=== PATIENT | female | born 1970 | race Caucasian/White ===

== ENCOUNTER 2021-04-13 06:36 | Day surgery (SDC) | payer OTHER, SELFPAY ==
[2021-04-08 11:09] VITALS: BMI 63.6
--- NOTE | 2021-04-12 12:02 | HO.ANESPROP2 ---
Documented by User: Marisa Lincoln 04/12/21 12:03 HPI - Anesthesia Eval Consult details Narrative: 51yo F for Colonoscopy [facility] Past Medical History Medical History COVID-19 vaccine series completed Diarrhea Knee pain, right Low back pain Surgical History Surgical History No history of previous surgery Social History Social History Patient Tobacco Use Status: Never used Tobacco Use of substances other than those prescribed or required for medical reasons: No Are you DNR?: Yes Advance Directives: No Advance Directives Information Provided: No Advance Directives on File: No Meds Allergies Allergy/AdvReac Type Severity Reaction Status Date / Time powder in gloves Allergy Unknown rash Verified 04/08/21 11:05 Home Medications Medication Instructions Recorded Confirmed Last Taken Type cetirizine [Zyrtec] 10 mg PO DAILY 04/08/21 04/08/21 Unknown History multivitamin 1 tab PO DAILY 04/08/21 04/08/21 Unknown History Exam Exam Date and Time: April 12, 2021 1202 Height,Weight and Vital Signs: Height 5 ft 1 in Weight 152.861 kg Assessment and Plan Assessment Anesthesia Assessment: Chart Reviewed Documented by User: Betty Cheema 04/13/21 08:33 [facility] Past Medical History Medical History COVID-19 vaccine series completed Diarrhea Knee pain, right Low back pain Surgical History Surgical History No history of previous surgery Social History Social History Patient Tobacco Use Status: Never used Tobacco Use of substances other than those prescribed or required for medical reasons: No Are you DNR?: Yes Advance Directives: No Advance Directives Information Provided: No Advance Directives on File: No Meds Allergies Allergy/AdvReac Type Severity Reaction Status Date / Time powder in gloves Allergy Unknown rash Verified 04/08/21 11:05 Home Medications Medication Instructions Recorded Confirmed Last Taken Type cetirizine [Zyrtec] 10 mg PO DAILY 04/08/21 04/08/21 Unknown History multivitamin 1 tab PO DAILY 04/08/21 04/08/21 Unknown History Exam Airway Mallampati Class: III (Full neck) TM Dist: >3cm Neck ROM: Limited Loose/Missing/Broken Teeth: No Heart: RRR Lungs: CTA Assessment and Plan Assessment Anesthesia Assessment: Anesthesia Plan Discussed and Chart Reviewed Final Anesthetic Review NPO: Yes ASA Class: III Final Preanesthetic Review: Meds/Allgs Chart Reviewed, Consent Obtained/Reviewed and Anes Risks/Benef Reviewed Patient Risk: Intermediate Procedure Risk: Low Anesthetic Plan Anesthetic Plan: MAC: Disposition: Standard PACU
[2021-04-13 07:28] VITALS: BP 171/94; PULSE 92; RESP 18; TEMP 35.9; O2SAT 96; BMI 63.6
[2021-04-13] MEDS: Lactated Ringers 1,000 ML 100 ML IVCONT (07:35)
--- NOTE | 2021-04-13 07:40 | P.HPSUR_ITS ---
Pre-Procedural Eval Section A Date of Service: 04/13/21 The patient is an INPATIENT: No The History & Physical has been completed within 30 days and I have reviewed it.: No Section B Chief Complaint: screening Details of Present Illness: colon cancer screening, intermittent urgency, FH of colon polyps Relevant Family History (Specify if Yes): Yes Relevant Social History: None Present Medications: see Short Stay Collaborative assessment Medical History: Significant History (Degenerative joint disease and osteoarthritis. Morbid obesity. ) Allergies: Allergies Allergy/AdvReac Type Severity Reaction Status Date / Time powder in gloves Allergy Unknown rash Verified 04/08/21 11:05 Review of Systems Sugical H&P ROS: Negative: Constitution, Cardiovascular, Respiratory and Gastr ointestinal Exam Surgical H&P Exam: Normal: Heart, Normal: Lungs, Normal: Extremities and Normal: Abdomen Plan Diagnosis/Plan: Unchanged I have reviewed the history and physical and performed a pertinent physical examination on my patient. No changes have occurred unless specified.
--- NOTE | 2021-04-13 08:18 | PM.OP ---
Brief Operative Note Date of Service: 04/13/21 Pre-op diagnosis: Colon cancer screening, intermittent urgency with BMs Post-op diagnosis: other (DIVERTICULOSIS) Procedure: COLONOSCOPY TILL CECUM WITH BIOPSIES Consent: Indications for the procedure and potential complications of bleeding, perforation, reaction to medications and missed diagnosis were discussed with the patient and informed consent was obtained. Instrument: Olympus PCF H 190 L variable stiffness pediatric colonoscope Monitoring: Vital signs and clinical assessment, intermittent blood pressure monitoring, continuous EKG monitoring, Pulse oximetry and Carbon Dioxide monitoring were done throughout the procedure. Colon withdrawl time was 20 minutes. Procedure: The patient was placed in the left lateral decubitis position and pre-procedure medications were administered. After a digital rectal examination of the ano-rectum, the video colonoscope was inserted into the rectum and advanced through the colon to the cecum. The colonoscope was slowly withdrawn in a retrograde panoramic fashion and the colon mucosa was carefully examined including a retroflexed view of the rectum. Findings and interventions are described below. Procedure Difficulty: Without difficulty Findings: Terminal Ileum: Not evaluated Cecum: Normal Ascending Colon: Normal Transverse Colon: Normal Descending Colon: Moderate diverticulosis Sigmoid Colon: Moderate diverticulosis Rectum: Normal Ano-rectum: Normal Colon preparation: Excellent Impression and Post Procedure Diagnosis: Colonoscopy Findings: No polyps were detected. Random biopsies were obtained from the colon to check for microscopic colitis. Moderate diverticulosis seen in the left colon Plan: Await pathology results Patient has an appointment on 05/03/21 in the [facility] with JOSE Jade. Repeat Colonoscopy in 5 years due to family hx of multiple colon polyps in her Dad. Above findings were reviewed with the patient and diverticulosis handout was given in the discharge area Surgeon: Rebecca Ware MD Anesthesia: MAC (Dr Cheema) Was an Product Info Specialist used for this Procedure?: No Product Info Specialist: Mary Chino Estimated blood loss (mL): 0 Pathology: other (A- RANDOM COLON BIOPSIES) Condition: stable Disposition: PACU
[2021-04-13 08:57] VITALS: BP 133/85; PULSE 86; RESP 18; TEMP 36.8; O2SAT 95
--- NOTE | 2021-04-13 09:08 | PC.NURSE ---
patient alert and awake sitting up in bed drinking ice water. awaiting eduardo murillo
[2021-04-13 09:12] VITALS: BP 148/80; PULSE 82; RESP 18; TEMP 36.1; O2SAT 97
--- NOTE | 2021-04-13 17:28 | P.OP_ITS ---
Operative Note Operative Note Date of Service: 04/13/21 Narrative: Pre-op diagnosis: Colon cancer screening, intermittent urgency with BMs Post-op diagnosis: other (DIVERTICULOSIS) Procedure: COLONOSCOPY TILL CECUM WITH RANDOM BIOPSIES Consent: Indications for the procedure and potential complications of bleeding, perforation, reaction to medications and missed diagnosis were discussed with the patient and informed consent was obtained. Instrument: Olympus PCF H 190 L variable stiffness pediatric colonoscope Monitoring: Vital signs and clinical assessment, intermittent blood pressure monitoring, continuous EKG monitoring, Pulse oximetry and Carbon Dioxide monitoring were done throughout the procedure. Colon withdrawl time was 20 minutes. Procedure: The patient was placed in the left lateral decubitis position and pre-procedure medications were administered. After a digital rectal examination of the ano-rectum, the video colonoscope was inserted into the rectum and advanced through the colon to the cecum. The colonoscope was slowly withdrawn in a retrograde panoramic fashion and the colon mucosa was carefully examined including a retroflexed view of the rectum. Findings and interventions are described below. Procedure Difficulty: Without difficulty Findings: Terminal Ileum: Not evaluated Cecum: Normal Ascending Colon: Normal Transverse Colon: Normal Descending Colon: Moderate diverticulosis Sigmoid Colon: Moderate diverticulosis Rectum: Normal Ano-rectum: Normal Colon preparation: Excellent Impression and Post Procedure Diagnosis: Colonoscopy Findings: No polyps were detected. Random biopsies were obtained from the colon to check for microscopic colitis. Moderate diverticulosis seen in the left colon Plan: Await pathology results Patient has an appointment on 05/03/21 in the GI Clinic with JOSE Jade. Repeat Colonoscopy in 5 years due to family hx of multiple colon polyps in her Dad. Above findings were reviewed with the patient and diverticulosis handout was given in the discharge area Surgeon: Rebecca Ware MD Anesthesia: MAC (Dr Cheema) Was an Inspector Floor Sub Assembly used for this Procedure?: No Inspector Floor Sub Assembly: Mary Chino Estimated blood loss (mL): 0 Pathology: other (A- RANDOM COLON BIOPSIES) Condition: stable Disposition: PACU
== END 2021-04-13 11:00 | disposition home or self-care (01) ==
PROVIDERS: PCP Internal Medicine; Visit Provider Internal Medicine Gastroenterology
PROC: 0DJD8ZZ Inspection of Lower Intestinal Tract, Via Natural or Artificial Opening Endoscopic (ICD-10-PCS; CPT 45378; principal; 2021-04-13 08:10)
DX: Z12.11 Encounter for screening for malignant neoplasm of colon (principal); Z83.71 Family history of colonic polyps; K57.30 Diverticulosis of large intestine without perforation or abscess without bleeding; R15.2 Fecal urgency; Z79.899 Other long term (current) drug therapy
CPT/HCPCS: 45380; 88305; J2405; J2765

== ENCOUNTER → 2021-05-10 10:44 | Outpatient (BNVA) | payer OTHER, SELFPAY | PROVIDERS: PCP Internal Medicine; Visit Provider Physician Assistant ==

== ENCOUNTER 2021-06-01 12:25 | Outpatient (REF) | payer OTHER, SELFPAY ==
[2021-06-01 13:58] LABS: MANUAL DIFF FLAG NO
[2021-06-01 14:01] LABS: Basophils Percent Auto 0.6 % (0-2); Eosinophils Absolute Auto 0.1 X10*3/uL (0.0-0.4); Eosinophils Percent Auto 1.5 % (0-4); Hematocrit 45.1 % (37-47); Hemoglobin 14.7 g/dl (12.0-16.0); Imm Gran Abs Auto 0.05 X10*3/uL (0.00-0.03); Imm Gran Pct Auto 0.7 % (0.0-0.4); Lymphocytes Absolute Auto 2.6 X10*3/uL (1.2-4.9); Lymphocytes Percent Auto 36.1 % (20-40); Mean Corpuscular HGB Conc 32.6 g/dl (31.0-35.0); Mean Corpuscular Hemoglobin 28.7 pg (27.0-33.0); Mean Corpuscular Volume 87.9 fL (80-98); Mean Platelet Volume 10.7 fL (9.4-12.3); Monocytes Absolute Auto 0.4 X10*3/uL (0.1-1.2); Monocytes Percent Auto 6.2 % (2-11); Neutrophils Absolute Auto 3.9 X10*3/uL (2.0-8.3); Neutrophils Percent Auto 54.9 % (45-73); Platelet Count 243 X10*3/uL (160-400); Red Blood Count 5.13 X10*6/uL (4.20-5.50); Red Cell Distribution Width 13.6 % (11.0-16.0); White Blood Count 7.1 X10*3/uL (4.8-10.8)
[2021-06-01 14:29] LABS: Alanine Aminotransferase 41 U/L (0-31); Alkaline Phosphatase 113 U/L (39-117); Anion Gap 13 (12-20); Aspartate Amino Transferase 22 U/L (5-31); Bilirubin Total 0.8 mg/dL (0.0-1.0); Blood Urea Nitrogen 9 mg/dL (9-16); C Reactive Protein 0.57 mg/dL (< or = 0.50); Calcium 8.9 mg/dL (8.4-10.2); Carbon Dioxide 26 mmol/L (22-29); Chloride 105 mmol/L (96-108); Estimated Glomerular Filt Rate > 60; Glucose Random 100 mg/dL (60-115); Potassium 4.5 mmol/L (3.3-5.1); Sodium 139 mmol/L (135-145); Total Protein 6.5 g/dL (6.5-8.0)
[2021-06-01 14:38] LABS: Thyroid Stimulating Hormone 2.06 uIU/mL (0.32-4.0)
[2021-06-01 14:52] LABS: Erythrocyte Sedimentation Rate 9 MM/HR (0-20)
[2021-06-04 02:56] LABS: Transglutaminase IgA 1 U/mL
[2021-06-04 10:42] LABS: Endomysial IgA Antibody Negative (Negative)
[2021-06-05 18:16] LABS: Calprotectin, Fecal 6 mcg/g
== END 2021-06-01 12:26 | disposition home or self-care (01) ==
LOC: HO.HMGCLDS 12:25
PROVIDERS: PCP Internal Medicine; Visit Provider Physician Assistant
DX: R10.11 Right upper quadrant pain (principal); R19.5 Other fecal abnormalities; R19.7 Diarrhea, unspecified
CPT/HCPCS: 36415; 80053; 83516; 83993; 84443; 85025; 85652; 86140; 86255; 86256

== ENCOUNTER → 2021-06-23 08:30 | Outpatient (BNVA) | payer OTHER, SELFPAY | PROVIDERS: PCP Internal Medicine; Visit Provider Physician Assistant ==

== ENCOUNTER 2022-09-02 07:27 | Outpatient (REF) | payer OTHER, SELFPAY ==
[2022-09-02 13:06] LABS: Alanine Aminotransferase 27 U/L (0-31); Anion Gap 9 (12-20); Aspartate Amino Transferase 16 U/L (5-31); Blood Urea Nitrogen 19 mg/dL (9-16); Calcium 9.1 mg/dL (8.4-10.2); Carbon Dioxide 27 mmol/L (22-29); Chloride 103 mmol/L (96-108); Cholesterol 144 mg/dL; Estimated Glomerular Filt Rate > 60; Glucose Fasting 114 mg/dL (60-99); HDL Cholesterol 45 mg/dL; LDL Cholesterol Calculated 84 mg/dl; Sodium 135 mmol/L (135-145); Triglycerides 75 mg/dL
[2022-09-02 13:40] LABS: Vitamin D 25-OH Total 8.1 ng/mL (>30)
== END 2022-09-02 07:28 | disposition home or self-care (01) ==
LOC: HO.HMGCLDS 07:27
PROVIDERS: PCP Internal Medicine; Visit Provider Internal Medicine
DX: Z00.01 Encounter for general adult medical examination with abnormal findings (principal); E66.01 Morbid (severe) obesity due to excess calories; Z68.44 Body mass index [BMI] 60.0-69.9, adult
CPT/HCPCS: 36415; 80048; 80061; 82306; 84450; 84460

== ENCOUNTER 2023-06-01 12:33 | Outpatient (AMB) | payer OTHER, SELFPAY ==
--- NOTE | 2023-06-01 12:35 | AM.OFFWIN_ITS ---
Intake Vital Signs 06/01/23 12:36 Height 5 ft 2 in Weight 338 lb BMI 61.8 BP 154/90 H Blood Pressure Location Lt brachial Position Sitting Pulse 95 Pulse Source Pulse Oximeter Temp 97.3 F Temp Source Temporal Artery Scan Pulse Oximetry (%) 100 Oxygen Delivery Method Room Air Intake Visit Reasons: EST/twisted right ankle Intake Note: Pt is here c/o right ankle and hand pain. Pt states she fell on Monday and now has brusing on her hand. Pt states she has ice'd and elevated her foot and noth ing has worked. Patient Tobacco Use Status: Never used Tobacco Allergies powder in gloves Allergy (Unknown, Verified 06/01/23 12:38) rash Do you need a note to return to daycare/school/sports/work: Yes HPI HPI Comments History of Present Illness Details 53-year-old female presents for twisted ankle. She will her ankle 2 days ago Been experiencing pain and swelling able to ambulate. [facility] Medical History (Updated 08/19/22 @ 12:44 by Michelle Salinas MD) COVID-19 vaccine series completed History of COVID-19 Knee pain, right Low back pain Morbid obesity with BMI of 60.0-69.9, adult Surgical History Hx of colonoscopy No history of previous surgery Family History Sister Mental health disorder Mother Mental health disorder Social History Housing: House Alcohol intake: never Patient Tobacco Use Status: Never used Tobacco e-Cigarette/Vaping Use: Never Used Current occupational status: employed Current occupation: Visiting nurse Cognitive needs: No Hearing needs: No Vision needs: Yes Review of Systems Const All systems reviewed & are unremarkable except as noted in HPI and below Musc Reports arthralgias and Reports joint swelling Physical Exam Vital Signs: Last Vital Signs Temp 97.3 F 06/01/23 12:36 Pulse 95 06/01/23 12:36 BP 154/90 H 06/01/23 12:36 Pulse Ox 100 06/01/23 12:36 Oxygen Delivery Method Room Air 06/01/23 12:36 BMI result Body Mass Index 61.8 Const General: healthy appearing and no acute distress Extrem Other: swelling over the lateral malleolus with mild tenderness to palpation Assessment & Plan Assessment & Plan (1) Ankle pain: Code(s): M25.579 - Pain in unspecified ankle and joints of unspecified foot Plan X-rays performed which show question slight lucency at the base of the distal fibula concerning for avulsion fracture. Air cast provided weightbearing as tolerated Discharge instructions, follow up and treatment are discussed with patient in my usual fashion. Alternatives in treatment are also discussed. The patient will return for worsening symptoms or as needed. Advised that any labs/imaging ordered will be followed up on and contact made if further treatment needed. Counseled that patient's condition may require further evaluation and/or treatment. Symptoms of concern for worsening disorder discussed in detail in my customary manner. Patient does verbalize understanding of the plan, there are no apparent barriers to communication. The patient is given the opportunity to ask questions and have them answered to his/her satisfaction. Orders: Orders XR ankle RT min 3V Today M25.579 - Pain in unspecified ankle and joints of unspecified foot Coding Level of Care Code Est Pt Level 3 (18514) Diagnoses Ankle pain M25.579
[2023-06-01 12:36] VITALS: BP 154/90; PULSE 95; TEMP 36.3; O2SAT 100; BMI 61.8
== END 2023-06-01 13:45 | disposition home or self-care (01) ==
PROVIDERS: PCP Internal Medicine; Visit Provider Physician Assistant
DX: M25.579 Pain in unspecified ankle and joints of unspecified foot (principal)
CPT/HCPCS: 99213

== ENCOUNTER 2023-06-01 13:02 | Outpatient (REF) | payer OTHER, SELFPAY ==
--- NOTE | ~2023-06-01 | XR_ITS ---
EXAMINATION: XR ANKLE, RIGHT CLINICAL INFORMATION: Right ankle pain. COMPARISON: None available. TECHNIQUE: AP, lateral, and mortise views of the right ankle. FINDINGS: The ankle joint and mortise are intact. Mild tibiotalar degenerative joint changes are seen with mild calcifications posteriorly. The tarsal bones are normally aligned. There is a small plantar calcaneal spur. Moderate soft tissue swelling is seen, more pronounced laterally. XR/XR ankle RT min 3V IMPRESSION: Moderate soft tissue swelling, more pronounced laterally without definitive acute underlying osseous abnormality. Soft tissue injury cannot be excluded. If findings persist or worsen, MRI should be considered.
== END 2023-06-01 13:03 | disposition home or self-care (01) ==
LOC: HO.HMGCX 13:02
PROVIDERS: PCP Internal Medicine; Visit Provider Physician Assistant
DX: M25.571 Pain in right ankle and joints of right foot (principal)
CPT/HCPCS: 73610

== ENCOUNTER 2023-08-30 12:20 | Outpatient (AMB) | payer OTHER, SELFPAY ==
--- NOTE | 2023-08-30 12:42 | MHC.PC.OV ---
Vital Signs 08/30/23 12:43 Height 5 ft 2 in Weight 342 lb BMI 62.5 BP 140/82 H Blood Pressure Location Lt brachial Position Sitting Pulse 81 Pulse Source Pulse Oximeter Pulse Oximetry (%) 95 Oxygen Delivery Method Room Air Intake Visit Reasons: PE Intake Note: Pt is here today for PE. [place] [facility] [place] was 2 years ago. Allergies powder in gloves Allergy (Unknown, Verified 08/30/23 13:15) rash Medication List - Last Reconciled 08/30/23 by Michelle Salinas MD cetirizine (Zyrtec) 10 mg PO DAILY loperamide (Imodium A-D) 2 mg PO Q6H PRN multivitamin 1 tab PO DAILY Tobacco use date assessed: 08/30/23 Dental Screening Dental Screen Date: 08/30/23 Did you have a dental visit in the last 12 months?: No Did you have a dental problem in the last 6 months where you did not have access to dental care?: No Was dental information given to patient?: Patient declined HPI PE HPI Details 53-year-old lady here today for her physical exam. She is up-to-date with her cervical cancer screening and pelvic exam, goes [place] [facility] [place] [facility]. She is also up-to-date with her screening colonoscopy done in [address] Ware, to be rechecked again in 2025 due to positive family history for colon cancer. [facility] Medical History (Updated 08/30/23 @ 13:33 by Michelle Salinas MD) Essential hypertension Impaired fasting glucose History of COVID-19 Morbid obesity with BMI of 60.0-69.9, adult COVID-19 vaccine series completed Low back pain Knee pain, right Surgical History Hx of colonoscopy No history of previous surgery Family History Sister Mental health disorder Mother Mental health disorder Social History Housing: House Alcohol intake: never Patient Tobacco Use Status: Never used Tobacco e-Cigarette/Vaping Use: Never Used Current occupational status: employed Current occupation: Visiting nurse Cognitive needs: No Hearing needs: No Vision needs: Yes Questionnaire PHQ-9 Over the last 2 weeks, how often have you been bothered by any of the following problems? 1. Little interest or pleasure in doing things: not at all 2. Feeling down, depressed, or hopeless: not at all 3. Trouble falling or staying asleep, or sleeping too much: not at all 4. Feeling tired or having little energy: not at all 5. Poor appetite or overeating: not at all 6. Feeling bad about yourself - or that you are a failure or have let yourself or your family down: not at all 7. Trouble concentrating on things, such as reading the newspaper or watching television: not at all 8. Moving or speaking so slowly that other people could have noticed. Or the opposite - being so fidgety or restless that you have been moving around a lot more than usual: not at all 9. Thoughts that you would be better off or of hurting yourself in some way: not at all Total score: 0 Depression Screening Interpretation: Negative Depression Screening Done: Yes 74406 - PHQ-9 Billing: Yes Source: Developed by Drs. Pillo Radford, Elise Cárdenas, Pavan Alejandre and colleagues, with an educational charu from [employer]. Thrive Questionnaire Date Thrive assessed: 08/30/23 I am a: Patient What is your living situation today?: I have a steady place to live Within the past 12 months, did the food you bought not last and you didn't have the money to get more?: Never true Within the past 12 months, did you worry whether your food would run out before you got money to buy more?: Never true Do you have trouble paying for medicines?: No Do you have trouble getting transportation to medical appointments?: No Do you have trouble paying your heating and electricity bill?: No Do you have trouble taking care of your child, family member or friend?: No Do you have trouble with day-to-day activities such as bathing, preparing meals, shopping, managing finances, etc.?: No Are you currently unemployed and looking for a job?: No Are you interested in more education?: No AUDIT C Alcohol Use Questionnaire (AUDIT-C) 1. How often do you have a drink containing alcohol?: Never 3. How often do you have six or more drinks on one occasion?: Never Total Score: 0 ELENI-7 AMB Questionnaire ELENI-7 Date ELENI - 7 assessed: 08/30/23 Feeling nervous, anxious, or on edge: 0 = Not at all Not being able to stop or control worryin = Not at all Worrying too much about different things: 0 = Not at all Trouble relaxin = Not at all Being so restless that it is hard to sit still: 0 = Not at all Becoming easily annoyed or irritable: 0 = Not at all Feeling afraid as if something awful might happen: 0 = Not at all Total ELENI-7 score (0-4 normal; 5-9 mild; 10-14 moderate; 15-21 severe): 0 Source: Developed by Drs. Pillo Radford, Elise Cárdenas, Pavan Alejandre and colleagues, with an educational charu from [employer]. Review of Systems Const Denies body aches, Denies fatigue, Denies fever(s), Denies headache(s), Denies weakness and Reports weight gain Eyes Details: sees [facility] Denies change in vision, Denies eye discharge and Denies itchy eyes ENT Denies dizziness, Denies headache(s), Denies nasal congestion, Denies nasal discharge and Denies sore throat Card Denies chest pain, Reports rapid heart rate (With moderate exertion, resolves spontaneously after resting), Denies lightheadedness and Denies palpitations Resp Denies chest congestion, Denies cough and Denies wheezing GI Denies abdominal pain, Denies change in bowel habits and Denies heartburn Denies hematuria, Denies urinary frequency, Denies dysuria and Denies urinary urgency Musc Details: Recurrent knee pain, followed by Orthopedics Skin/Breast Denies breast pain, Denies breast mass, Denies lesions and Denies rash Neuro Denies dizziness, Denies headache(s) and Denies weakness Psych Reports no additional complaints Endo Denies fatigue, Denies polydipsia, Denies polyuria and Denies palpitations Esau/Lymph Denies easy bruising Aller/Immun Denies itchy eyes, Denies seasonal rhinorrhea and Denies wheezing Physical exam (Primary Care) Vital Signs: Last Vital Signs Pulse 81 08/30/23 12:43 BP 140/82 H 08/30/23 12:43 Pulse Ox 95 08/30/23 12:43 Oxygen Delivery Method Room Air 08/30/23 12:43 BMI result Body Mass Index 62.5 BMI Assessment/Plan discussion: High (Declines referral to weight loss clinic) BMI High, discussed plan: lifestyle, weight reduction, dietary and physical activity Tobacco/Smoking Status: Tobacco use Status Tobacco use date assessed 08/30/23 08/30/23 12:48 Patient Tobacco Use Status Never used Tobacco 08/30/23 12:48 e-Cigarette/Vaping Use Never Used 08/30/23 12:44 PHQ-9: PHQ-9 Score PHQ-9: Total score 0 08/30/23 13:45 Depression Screening Interpretation: Negative Thrive Assessment: Date of Thrive Assessment Date Thrive assessed 08/30/23 08/30/23 13:45 Const General: comfortable, no acute distress, alert and Physically active Nutritional Appearance: obese morbidly obese Orientation/consciousness: patient oriented x3 HENMT Head: Yes normocephalic and Yes atraumatic Ears: hearing grossly normal bilaterally, TM's normal bilaterally and EAC's normal General nose exam: Normal external nose present and No nasal discharge present Face and sinus: Yes sinuses nontender and Yes face symmetric Mouth: Normal oral and palatal mucosa present, oropharynx normal and moist mucous membranes Eyes General: appearance normal, both eyes and all related structures Neck Neck: Yes full ROM, Yes no lymphadenopathy and Yes supple Chest Chest palpation & inspection: normal inspection of the chest Breast/axilla palpation: normal palpation of the breasts Resp Effort & Inspection: normal respiratory effort and able to speak in complete sentences Auscultation: clear to auscultation bilaterally Cardio Rate: regular rate Rhythm: regular rhythm Heart sounds: S1 normal heart sound present and S2 normal heart sound present GI Inspection: Yes obesity Palpation (GI): Soft to palpation, nontender, no guarding and no masses Auscultation: normal bowel sounds General: Yes no CVA tenderness and Yes deferred Back/Spine/Pelvis Back: no CVA tenderness and No back tenderness Skin General skin exam: no rashes or lesions noted Neuro General: patient oriented x3, gait normal, moves all extremities, Normal light touch and pain sensation, no focal motor deficits and CN's II-XI intact bilaterally Extrem General: Yes full ROM, Yes no joint enlargement, Yes no clubbing, cyanosis or edema, Yes no calf tenderness and Yes normal gait Psych Appearance: grossly normal and well kempt Mental Status: mental status grossly normal Speech and movement: Normal speech and movement present Affect: normal affect Attitude: cooperative Thought process: Normal thought process present Assessment and Plan Assessment & Plan (1) Annual visit for general adult medical examination with abnormal findings: Code(s): Z00.01 - Encounter for general adult medical examination with abnormal findings Plan: Will check appropriate labs. Recommended dental visit every 6 months and regular eye exams, at least every 2 years. Take adequate calcium in diet and vitamin-D 3 at 2000 IU per cap once a day, in addition to weight-bearing exercises to help Instructed to do self-breast exam, and recommended to get yearly mammogram, starting at age 40. Immunization information provided: Yearly flu vaccine, shingles vaccine starting at age 50, at age 65 to start getting Prevnar 13 followed 1 year later by Pneumovax 23. Colonoscopy . (2) Morbid obesity with BMI of 60.0-69.9, adult: Code(s): E66.01 - Morbid (severe) obesity due to excess calories; Z68.44 - Body mass index [BMI] 60.0-69.9, adult Plan: Patient declines refer for weight loss surgery. . I deal BMI is between 18.5- 24. BMI is calculated from you height and weight. Weight gain happens when you taken more calories than you burn off. Discussed need to increase activity and weight reduction. Recommended focusing on improving health instead of dieting. Mediterranean diet is a healthy diet that helps, limit food high in fat, sugar, and calories. Eat slowly, pay attention to portion sizes, plan your meals ahead of time, start regular physical activity, at least 150 minutes of moderate intensity exercise, or 90 minutes per week of vigorous exercise. Keeping a food diary, tracking what you eat and your physical activity can help assess what improvements you can make. There are many health problems associated with being overweight/obese, so it is important to improve your diet and exercise. There are medications and surgical options available, but Lifestyle changes are the 1st step. (3) Impaired fasting glucose: Code(s): R73.01 - Impaired fasting glucose Plan: Your fasting blood sugars elevated above 100 mg/dL. Impaired glucose metabolism O2 at risk for developing diabetes mellitus type 2, as well as heart attack and stroke later on. Lifestyle changes at just weight loss, healthy eating habits, and regular exercise are important, and can prevent the progression to diabetes (4) Vitamin D deficiency: Code(s): E55.9 - Vitamin D deficiency, unspecified Plan: Will repeat another vitamin-D low, in the meantime advised to take [id number] vitamin D3 at 2000 units once a day (5) Essential hypertension: Code(s): I10 - Essential (primary) hypertension Plan: Blood pressure has been elevated now for the last several months. Blood pressure goal is to go less than 130/80. Will start on lisinopril 5 mg per tablet to take once a day in a.m.. Discussed possible side effects of medication, and to contact us right away. Advised to return to the clinic in a week to get blood pressure checked by the nurse Orders: Orders Aspartate Amino Transferase 08/30/23 E55.9 - Vitamin D deficiency, unspecified, E66.01 - Morbid (severe) obesity due to excess calories, R73.01 - Impaired fasting glucose, Z00.01 - Encounter for general adult medical examination with abnormal findings, Z13.220 - Encounter for screening for lipoid disorders, Z68.44 - Body mass index [BMI] 60.0-69.9, adult Hemoglobin A1c 08/30/23 E55.9 - Vitamin D deficiency, unspecified, E66.01 - Morbid (severe) obesity due to excess calories, R73.01 - Impaired fasting glucose, Z00.01 - Encounter for general adult medical examination with abnormal findings, Z13.220 - Encounter for screening for lipoid disorders, Z68.44 - Body mass index [BMI] 60.0-69.9, adult Basic Metabolic Panel Fasting 08/30/23 E55.9 - Vitamin D deficiency, unspecified, E66.01 - Morbid (severe) obesity due to excess calories, R73.01 - Impaired fasting glucose, Z00.01 - Encounter for general adult medical examination with abnormal findings, Z13.220 - Encounter for screening for lipoid disorders, Z68.44 - Body mass index [BMI] 60.0-69.9, adult Alanine Aminotransferase 08/30/23 E55.9 - Vitamin D deficiency, unspecified, E66.01 - Morbid (severe) obesity due to excess calories, R73.01 - Impaired fasting glucose, Z00.01 - Encounter for general adult medical examination with abnormal findings, Z13.220 - Encounter for screening for lipoid disorders, Z68.44 - Body mass index [BMI] 60.0-69.9, adult Lipid Panel 08/30/23 E55.9 - Vitamin D deficiency, unspecified, E66.01 - Morbid (severe) obesity due to excess calories, R73.01 - Impaired fasting glucose, Z00.01 - Encounter for general adult medical examination with abnormal findings, Z13.220 - Encounter for screening for lipoid disorders, Z68.44 - Body mass index [BMI] 60.0-69.9, adult Vitamin D 25-OH Total 08/30/23 E55.9 - Vitamin D deficiency, unspecified, E66.01 - Morbid (severe) obesity due to excess calories, R73.01 - Impaired fasting glucose, Z00.01 - Encounter for general adult medical examination with abnormal findings, Z13.220 - Encounter for screening for lipoid disorders, Z68.44 - Body mass index [BMI] 60.0-69.9, adult MM tomosynthesis screening BI 08/30/23 Z12.31 - Encounter for screening mammogram for malignant neoplasm of breast Medications: New lisinopril 5 mg PO DAILY 30 tabs 1RF Coding Level of Care Code Est Pt Prev Care 40-64y(23804) Diagnoses Annual visit for general adult medical examination with abnormal findings Z00.01 Morbid obesity with BMI of 60.0-69.9, adult E66.01; Z68.44 Impaired fasting glucose R73.01 Vitamin D deficiency E55.9 Essential hypertension I10
[2023-08-30 12:43] VITALS: BP 140/82; PULSE 81; O2SAT 95; BMI 62.5
== END 2023-08-30 13:48 | disposition home or self-care (01) ==
PROVIDERS: Visit Provider Internal Medicine
DX: Z00.00 Encounter for general adult medical examination without abnormal findings (principal); E66.01 Morbid (severe) obesity due to excess calories; Z68.44 Body mass index [BMI] 60.0-69.9, adult; R73.01 Impaired fasting glucose; E55.9 Vitamin D deficiency, unspecified; I10 Essential (primary) hypertension
CPT/HCPCS: 99396

== ENCOUNTER 2023-09-05 07:19 | Outpatient (REF) | payer OTHER, SELFPAY ==
[2023-09-05 11:09] LABS: Estimated Average Glucose 123 mg/dL; Hemoglobin A1C 148.3747 umol/L; Hemoglobin A1c % 5.9 % (<6.0)
[2023-09-05 11:23] LABS: Alanine Aminotransferase 38 U/L (0-31); Anion Gap 11 (12-20); Aspartate Amino Transferase 25 U/L (5-31); Blood Urea Nitrogen 11 mg/dL (9-16); Calcium 9.2 mg/dL (8.4-10.2); Carbon Dioxide 27 mmol/L (22-29); Chloride 105 mmol/L (96-108); Cholesterol 141 mg/dL (<200); Estimated Glomerular Filt Rate > 60; Glucose Fasting 107 mg/dL (60-99); HDL Cholesterol 38 mg/dL (>40); LDL Cholesterol Calculated 89 mg/dL (<100); Potassium 4.3 mmol/L (3.3-5.1); Sodium 139 mmol/L (135-145); Triglycerides 71 mg/dL (<150); Vitamin D 25-OH Total 19.4 ng/mL (>30)
== END 2023-09-05 07:20 | disposition home or self-care (01) ==
LOC: HO.HMGCLDS 07:19
PROVIDERS: PCP Internal Medicine; Visit Provider Internal Medicine
DX: Z00.01 Encounter for general adult medical examination with abnormal findings (principal); Z13.220 Encounter for screening for lipoid disorders; E66.01 Morbid (severe) obesity due to excess calories; Z68.44 Body mass index [BMI] 60.0-69.9, adult; R73.01 Impaired fasting glucose; E55.9 Vitamin D deficiency, unspecified
CPT/HCPCS: 36415; 80048; 80061; 82306; 83036; 84450; 84460

== ENCOUNTER 2023-10-10 11:37 | Outpatient (REF) | payer OTHER, SELFPAY ==
--- NOTE | ~2023-10-10 | MM_ITS ---
EXAMINATION: MM SCREENING DIGITAL BREAST TOMOSYNTHESIS, BILATERAL CLINICAL INFORMATION: Screening. Asymptomatic. COMPARISON: Mammography: This study is compared with prior exams dating back to 2019. TECHNIQUE: Digital breast tomosynthesis is performed in both the craniocaudal and mediolateral oblique views along with computer-aided detection (CAD). Synthesized 2D images are generated from the tomosynthesis. FINDINGS: There are scattered areas of fibroglandular density (ACR BI-RADS breast composition Category b). There are no significant masses, abnormal calcifications, or other abnormalities. Coarse, benign calcifications in the upper outer quadrant of the right breast are present and unchanged. MM/MM tomosynthesis screening BI IMPRESSION: No mammographic evidence of malignancy. ASSESSMENT: BI-RADS BI-RADS 2 - Benign Findings RECOMMENDATION: Routine annual mammography screening. 1 year F/U This examination should not preclude the clinical evaluation of a suspicious palpable abnormality. This patient's information was entered into a reminder system with a target due date for their next mammogram.
== END 2023-10-10 11:38 | disposition home or self-care (01) ==
LOC: HO.MAMMO 11:37
PROVIDERS: PCP Internal Medicine; Visit Provider Internal Medicine
DX: Z12.31 Encounter for screening mammogram for malignant neoplasm of breast (principal)
CPT/HCPCS: 77063; 77067

== ENCOUNTER → 2023-10-10 12:00 | Outpatient (BNV) | payer OTHER, SELFPAY | PROVIDERS: PCP Internal Medicine; Visit Provider Radiology Diagnostic Radiology | DX: Z12.31 Encounter for screening mammogram for malignant neoplasm of breast (principal) | CPT/HCPCS: 77063; 77067 ==

== ENCOUNTER 2024-02-27 12:53 | Outpatient (AMB) | payer OTHER, SELFPAY ==
--- NOTE | 2024-02-27 12:54 | A.OFFPC_ITS ---
Vital Signs 02/27/24 13:00 Height 5 ft 3 in Weight 339 lb BMI 60.0 BP 124/80 Blood Pressure Location Lt brachial Position Sitting Pulse 69 Pulse Source Pulse Oximeter Pulse Oximetry (%) 95 Oxygen Delivery Method Room Air Intake Visit Reasons: 6 month follow up Intake Note: Pt is here today for her 6 mo. f/u Allergies powder in gloves Allergy (Unknown, Verified 03/15/24 14:33) rash Medication List - Last Reconciled 02/27/24 by Michelle Salinas MD cetirizine (Zyrtec) 10 mg PO DAILY cholecalciferol (vitamin D3) 1,250 mcg PO QWEEK 3 months ibuprofen 600 mg PO DAILY lisinopril 20 mg PO DAILY loperamide (Imodium A-D) 2 mg PO Q6H PRN multivitamin 1 tab PO DAILY Tobacco use date assessed: 02/27/24 Dental Screening Dental Screen Date: 02/27/24 Did you have a dental visit in the last 12 months?: No Was dental information given to patient?: Patient declined HPI 6 month follow up HPI Details 53-year-old lady with hypertension, hist ory of vitamin-D deficiency, impaired fasting glucose and morbid obesity, here today for follow-up. She has been feeling well, compliant with taking her medications. [facility] Medical History History of vitamin D deficiency Essential hypertension Impaired fasting glucose History of COVID-19 Morbid obesity with BMI of 60.0-69.9, adult COVID-19 vaccine series completed Low back pain Knee pain, right Surgical History Hx of colonoscopy No history of previous surgery Family History Sister Mental health disorder Mother Mental health disorder Social History Housing: House Alcohol intake: never Patient Tobacco Use Status: Never used Tobacco e-Cigarette/Vaping Use: Never Used Current occupational status: employed Current occupation: Visiting nurse Cognitive needs: No Hearing needs: No Vision needs: Yes Questionnaire PHQ-9 Over the last 2 weeks, how often have you been bothered by any of the following problems? 1. Little interest or pleasure in doing things: not at all 2. Feeling down, depressed, or hopeless: not at all 3. Trouble falling or staying asleep, or sleeping too much: not at all 4. Feeling tired or having little energy: not at all 5. Poor appetite or overeating: not at all 6. Feeling bad about yourself - or that you are a failure or have let yourself or your family down: not at all 7. Trouble concentrating on things, such as reading the newspaper or watching television: not at all 8. Moving or speaking so slowly that other people could have noticed. Or the opposite - being so fidgety or restless that you have been moving around a lot more than usual: not at all 9. Thoughts that you would be better off or of hurting yourself in some way: not at all Total score: 0 Depression Screening Interpretation: Negative Depression Screening Done: Yes 34991 - PHQ-9 Billing: Yes Source: Developed by Drs. Pillo Radford, Elise Cárdenas, Pavan Alejandre and colleagues, with an educational charu from [employer]. Thrive Questionnaire Date Thrive assessed: 02/27/24 I am a: Patient What is your living situation today?: I have a steady place to live Within the past 12 months, did the food you bought not last and you didn't have the money to get more?: Never true Within the past 12 months, did you worry whether your food would run out before you got money to buy more?: Never true Do you have trouble paying for medicines?: No Do you have trouble getting transportation to medical appointments?: No Do you have trouble paying your heating and electricity bill?: No Do you have trouble taking care of your child, family member or friend?: No Do you have trouble with day-to-day activities such as bathing, preparing meals, shopping, managing finances, etc.?: No Are you currently unemployed and looking for a job?: No Are you interested in more education?: No THRIVE Score: 0 AUDIT C Alcohol Use Questionnaire (AUDIT-C) 1. How often do you have a drink containing alcohol?: Monthly or less 2. How many drinks containing alcohol do you have on a typical day when you are drinking?: 1 or 2 3. How often do you have six or more drinks on one occasion?: Never Total Score: 1 ELENI-7 AMB Questionnaire ELENI-7 Date ELENI - 7 assessed: 02/27/24 Feeling nervous, anxious, or on edge: 0 = Not at all Not being able to stop or control worryin = Not at all Worrying too much about different things: 0 = Not at all Trouble relaxin = Not at all Being so restless that it is hard to sit still: 0 = Not at all Becoming easily annoyed or irritable: 0 = Not at all Feeling afraid as if something awful might happen: 0 = Not at all Total ELENI-7 score (0-4 normal; 5-9 mild; 10-14 moderate; 15-21 severe): 0 Source: Developed by Drs. Pillo Radford, Elise Cárdenas, Pavan Alejandre and colleagues, with an educational charu from [employer]. ELENI-7 Assessment Billing ELENI-7 Assessment Tool: ELENI-7 Assessment 79094 Review of Systems Const Denies body aches, Denies fatigue, Denies fever(s), Denies headache(s), Denies weakness and Reports weight gain Eyes Details: sees [facility] Denies change in vision, Denies eye discharge and Denies itchy eyes ENT Denies dizziness, Denies headache(s), Denies nasal congestion, Denies nasal discharge and Denies sore throat Card Denies chest pain, Reports rapid heart rate (With moderate exertion, resolves spontaneously after resting), Denies lightheadedness and Denies palpitations Resp Denies chest congestion, Denies cough and Denies wheezing GI Denies abdominal pain, Denies change in bowel habits and Denies heartburn Denies hematuria, Denies urinary frequency, Denies dysuria and Denies urinary urgency Musc Details: Recurrent knee pain, followed by Orthopedics Skin/Breast Denies breast pain, Denies breast mass, Denies lesions and Denies rash Neuro Denies dizziness, Denies headache(s) and Denies weakness Psych Reports no additional complaints Endo Denies fatigue, Denies polydipsia, Denies polyuria and Denies palpitations Esau/Lymph Denies easy bruising Aller/Immun Denies itchy eyes, Denies seasonal rhinorrhea and Denies wheezing Physical exam (Primary Care) Vital Signs: Last Vital Signs Pulse 69 02/27/24 13:00 BP 124/80 02/27/24 13:00 Pulse Ox 95 02/27/24 13:00 Oxygen Delivery Method Room Air 02/27/24 13:00 BMI result Body Mass Index 60.0 BMI Assessment/Plan discussion: High (Declines referral to weight loss clinic) BMI High, discussed plan: lifestyle, weight reduction, dietary and physical activity Tobacco/Smoking Status: Tobacco use Status Tobacco use date assessed 02/27/24 02/27/24 12:56 Patient Tobacco Use Status Never used Tobacco 02/27/24 12:56 e-Cigarette/Vaping Use Never Used 02/27/24 12:56 PHQ-9: PHQ-9 Score PHQ-9: Total score 0 02/27/24 13:09 Depression Screening Interpretation: Negative Thrive Assessment: Date of Thrive Assessment Date Thrive assessed 02/27/24 02/27/24 13:05 Const General: comfortable, no acute distress, alert and Physically active Nutritional Appearance: obese morbidly obese Orientation/consciousness: patient oriented x3 HENMT Head: Yes normocephalic Ears: TM's normal bilaterally and EAC's normal General nose exam: Normal external nose present Face and sinus: Yes face symmetric Mouth: moist mucous membranes Eyes General: appearance normal, both eyes and all related structures Neck Neck: Yes full ROM, Yes no lymphadenopathy and Yes supple Resp Effort & Inspection: normal respiratory effort and able to speak in complete sentences Auscultation: clear to auscultation bilaterally Cardio Rate: regular rate Rhythm: regular rhythm Heart sounds: S1 normal heart sound present and S2 normal heart sound present GI Inspection: Yes obesity Palpation (GI): Soft to palpation, nontender, no guarding and no masses Auscultation: normal bowel sounds General: Yes no CVA tenderness and Yes deferred Back/Spine/Pelvis Back: no CVA tenderness and No back tenderness Skin General skin exam: no rashes or lesions noted Neuro General: patient oriented x3, gait normal, moves all extremities, Normal light touch and pain sensation, no focal motor deficits and CN's II-XI intact bilaterally Extrem General: Yes full ROM, Yes no joint enlargement, Yes no clubbing, cyanosis or edema, Yes no calf tenderness and Yes normal gait Psych Appearance: grossly normal and well kempt Mental Status: mental status grossly normal Speech and movement: Normal speech and movement present Affect: normal affect Thought process: Normal thought process present Assessment and Plan Assessment & Plan (1) Morbid obesity with BMI of 60.0-69.9, adult: Code(s): E66.01 - Morbid (severe) obesity due to excess calories; Z68.44 - Body mass index [BMI] 60.0-69.9, adult Plan: Discussed need to increase activity and weight loss with diet and exercise, patient declined referral for weight loss clinic Recommended focusing on improving your health instead of dieting. : Eat Mediterranean diet, limit foods high in fat, sugar, and calories, eat slowly, pay attention to portion sizes, plan your meals ahead of time, start regular physical activity 150 minutes of moderate intensity exercise or 90 minutes/week of vigorous exercise (2) Impaired fasting glucose: Code(s): R73.01 - Impaired fasting glucose Plan: Your reviewed fasting blood sugars were elevated above 100 mg/dL. Impaired glucose metabolism increase the risk for developing diabetes mellitus type 2, as well as heart attack and stroke later on. Lifestyle changes that promote weight loss, healthy eating habits, and regular exercise are important, and can prevent the progression to diabetes (3) Essential hypertension: Code(s): I10 - Essential (primary) hypertension Plan: Blood pressure at goal of less than 130/80. Continue lisinopril 20 mg daily. Reinforced importance of following a low sodium diet, getting regular exercise, and lowering stress levels. (4) History of vitamin D deficiency: Code(s): Z86.39 - Personal history of other endocrine, nutritional and metabolic disease Plan: Will check vitamin-D level Orders: Orders Hemoglobin A1c 02/27/24 I10 - Essential (primary) hypertension, R73.01 - Impaired fasting glucose, Z86.39 - Personal history of other endocrine, nutritional and metabolic disease, E66.01 - Morbid (severe) obesity due to excess calories, Z68.44 - Body mass index [BMI] 60.0-69.9, adult, Z13.220 - Encounter for screening for lipoid disorders Aspartate Amino Transferase 02/27/24 I10 - Essential (primary) hypertension, R73.01 - Impaired fasting glucose, Z86.39 - Personal history of other endocrine, nutritional and metabolic disease, E66.01 - Morbid (severe) obesity due to excess calories, Z68.44 - Body mass index [BMI] 60.0-69.9, adult, Z13.220 - Encounter for screening for lipoid disorders Basic Metabolic Panel Fasting 02/27/24 I10 - Essential (primary) hypertension, R73.01 - Impaired fasting glucose, Z86.39 - Personal history of other endocrine, nutritional and metabolic disease, E66.01 - Morbid (severe) obesity due to excess calories, Z68.44 - Body mass index [BMI] 60.0-69.9, adult, Z13.220 - Encounter for screening for lipoid disorders Lipid Panel 02/27/24 I10 - Essential (primary) hypertension, R73.01 - Impaired fasting glucose, Z86.39 - Personal history of other endocrine, nutritional and metabolic disease, E66.01 - Morbid (severe) obesity due to excess calories, Z68.44 - Body mass index [BMI] 60.0-69.9, adult, Z13.220 - Encounter for sc reening for lipoid disorders Vitamin D 25-OH Total 02/27/24 I10 - Essential (primary) hypertension, R73.01 - Impaired fasting glucose, Z86.39 - Personal history of other endocrine, nutritional and metabolic disease, E66.01 - Morbid (severe) obesity due to excess calories, Z68.44 - Body mass index [BMI] 60.0-69.9, adult, Z13.220 - Encounter for screening for lipoid disorders Alanine Aminotransferase 02/27/24 I10 - Essential (primary) hypertension, R73.01 - Impaired fasting glucose, Z86.39 - Personal history of other endocrine, nutritional and metabolic disease, E66.01 - Morbid (severe) obesity due to excess calories, Z68.44 - Body mass index [BMI] 60.0-69.9, adult, Z13.220 - Encounter for screening for lipoid disorders Medications: Refilled lisinopril 20 mg PO DAILY 90 tabs 4RF Coding Level of Care Code Est Pt Level 4 (87174) Complex EM visit Add On G2211 Diagnoses Morbid obesity with BMI of 60.0-69.9, adult E66.01; Z68.44 Impaired fasting glucose R73.01 Essential hypertension I10 History of vitamin D deficiency Z86.39 Additional Codes ELENI-7 Assessment Billing - ELENI-7 Assessment Tool: ELENI-7 Assessment 15761 ([id number])
[2024-02-27 13:00] VITALS: BP 124/80; PULSE 69; O2SAT 95; BMI 60.0
== END 2024-02-27 13:24 | disposition home or self-care (01) ==
PROVIDERS: PCP Internal Medicine; Visit Provider Internal Medicine
DX: R73.01 Impaired fasting glucose (principal); E66.01 Morbid (severe) obesity due to excess calories; Z68.44 Body mass index [BMI] 60.0-69.9, adult; I10 Essential (primary) hypertension; Z86.39 Personal history of other endocrine, nutritional and metabolic disease
CPT/HCPCS: 99214; G2211

== ENCOUNTER 2024-03-09 22:03 | Emergency (ER) | payer OTHER, SELFPAY ==
--- NOTE | ~2024-03-09 | XR_ITS ---
EXAMINATION: XR ANKLE, LEFT CLINICAL INFORMATION: Pain COMPARISON: 11/28/2019 TECHNIQUE: AP, lateral, and mortise views of the left ankle. FINDINGS: Again seen are multiple old avulsion fractures at the tip of lateral malleolus and lateral margin of the talus, similar to prior. No acute fractures are identified in this region. Soft tissues are swollen around the ankle diffusely . Small irregular loose body in the anterior recess of the joint. Large os trigonum in the posterior aspect of the joint. Mild osteoarthritis in the ankle and subtalar joints. Mild multilevel degenerative disc disease in the midfoot. Enthesopathic spurs at the Achilles tendon insertion and plantar fascial origin. Subcutaneous edema. XR/XR ankle LT min 3V IMPRESSION: 1. No acute fracture or malalignment. 2. 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 3. Soft tissue swelling around the ankle.
[2024-03-09 22:21] VITALS: BP 140/84; PULSE 78; RESP 20; TEMP 37; O2SAT 95; BMI 60.2
--- NOTE | 2024-03-09 23:11 | ED_ITS ---
HPI - Extremity Injury (Lower) General Chief Complaint: Extremity Injury, Lower Stated Complaint: left ankle inj Time Seen by Provider: 03/09/24 23:10 Source: patient Mode of arrival: ambulatory Limitations: no limitations History of Present Illness ED Provider: Dr. Thierry Mares HPI Narrative: 53-year-old female who presents emergency department for evaluation of injury to her left ankle. 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 She states that her foot went out from under her causing her to fall. She states that she immediately had pain in her ankle but was able to walk on it. She states she continued to work but by the end of the day her left ankle was very painful and swollen therefore she came to the emergency department for evaluation. Related Data Home Medications ?Medication ?Instructions ?Recorded ?Confirmed cetirizine 10 mg tablet (Zyrtec) 10 mg PO DAILY 04/08/21 02/01/24 multivitamin 1 tab PO DAILY 04/08/21 02/01/24 loperamide 2 mg capsule (Imodium 2 mg PO Q6H PRN 05/10/21 02/01/24 A-D) ibuprofen 200 mg capsule 600 mg PO DAILY 09/07/23 02/01/24 Previous Rx's ?Medication ?Instructions ?Recorded cholecalciferol (vitamin D3) 1,250 1,250 mcg PO QWEEK 3 months #13 11/15/23 mcg (50,000 unit) capsule caps lisinopril 20 mg tablet 20 mg PO DAILY #90 tabs 02/27/24 Allergies Allergy/AdvReac Type Severity Reaction Status Date / Time powder in gloves Allergy Unknown rash Verified 03/09/24 22:26 Review of Systems Review of Systems: Yes all other systems are reviewed and are negative PMF Past Medical History Medical History History of vitamin D deficiency Essential hypertension Impaired fasting glucose History of COVID-19 Morbid obesity with BMI of 60.0-69.9, adult COVID-19 vaccine series completed Low back pain Knee pain, right Surgical History Hx of colonoscopy No history of previous surgery Family History Family History Sister Mental health disorder Mother Mental health disorder Social History Social History Housing: House Alcohol intake: never Patient Tobacco Use Status: Never used Tobacco e-Cigarette/Vaping Use: Never Used Advance Directives: No Advance Directives Information Provided: No Current occupational status: employed Current occupation: Visiting nurse Cognitive needs: No Hearing needs: No Vision needs: Yes Physical Exam Vital Signs: Vital Signs: Last Vital Signs Temp 98.6 F 03/09/24 23:47 Pulse 78 03/09/24 23:47 Resp 20 03/09/24 23:47 BP 140/84 H 03/09/24 23:47 Pulse Ox 95 03/09/24 23:47 O2 Del Method Room Air 03/09/24 23:47 BMI result Body Mass Index 60.2 Vital signs were normal except for slight elevation of blood pressure of 140/84. Exam: General: Awake, alert in no distress Extremities: Patient's left ankle revealed significant soft tissue swelling with minimal ecchymosis over the left lateral malleolus with tenderness palpation of the left lateral malleolus. Psych: Pleasant, cooperative Medical Decision Making Medical Decision Making MDM Narrative: 53-year-old female who works for the [employer] who had a left ankle injury at work at 12:40 hours. The patient continued to work and at the end of her shift she had increased pain increased swelling of her ankle therefore she came to emergency department for evaluation. Vital signs did reveal an elevated blood pressure. The patient's exam did reveal significant soft tissue swelling of the left lateral malleolus with tenderness palpation of this area. Differential diagnosis: ?Includes but is not limited ankle sprain , ankle fracture Following evaluation was ordered: Left ankle x-rays Patient was initially treated with the following: Darrin wrap to the left ankle, aircast, crutches Course: Patient's physical examination did reveal significant soft tissue swelling over the lateral malleolus with tenderness to palpation of this area as well. On my interpretation of the patient's x-ray, she has an avulsion fracture of the distal fibula and this would correlate with her findings and her description of her injury. Patient was treated with the above. She was advised to take Tylenol and ibuprofen for pain. She will be referred to [facility] for re- evaluation and if needed referral to Orthopedics. Patient was given a note not to return to work until she is re-evaluated by [facility] to determine if she can go back to work with limited duty. 07:36 Radiology reading is more consistent with chronic avulsion however I do not think that this changes the treatment since the patient's significant soft tissue swelling of the lateral malleolus of the ankle. I did discuss the radiology reading with the patient and told the patient that this radiology reading does not change the treatment at this time. Independent Interpretation I performed an independent interpretation of an: Plain X-Ray Interpretation: My interpretation patient's left x-ray is as follows: Avulsion fracture of the distal fibula and possibly the lateral talus Radiology Impression Discussion of test interpretation with radiology: I have reviewed the radiologist's reading. Radiologist Impression: XR ankle LT min 3V IMPRESSION: 1. No acute fracture or malalignment. 2. 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 3. Soft tissue swelling around the ankle. Dictated By: Tobi Gibson MD Discharge Plan Discharge Clinical Impression: Closed avulsion fracture of distal end of left fibula Patient Disposition: Home, Self-Care Instructions: Avulsion Fracture (ED) Additional Instructions: You have significant swelling over the lateral aspect of your left ankle. On my interpretation of your x-ray I believe you have a avulsion (piece of bone was pulled off the end of the fibula) of the distal fibula caused by severely twisting your ankle. Wear the Darrin wrap for 3 days. You can take it off but when you we wrapped it make sure that it is not too tight it is cutting off her circulation. Where the air cast until your re-evaluated by [facility] or orthopedics and they determine that you can stop wearing it. Use the crutches to reduce the amount of weight that you place on your left ankle. Take ibuprofen 200 mg pills, 2 pills every 6 hours as needed for pain or fever. Take Tylenol (acetaminophen) 500 mg pills, 2 pills every 6 hours as needed for pain or fever. Follow-up with [facility] for re-evaluation in the next 2-4 days. You can not return to work until [facility] clears you for limited or full duty. Please return to the emergency department if your symptoms get worse or if you develop any symptoms that are concerning to you. The official radiology reading is not back but I will text you with the results. The radiology reading will not change the treatment Prescriptions: No Action cholecalciferol (vitamin D3) 1,250 mcg (50,000 unit) capsule 1,250 mcg PO QWEEK 90 Days Qty: 13 0RF multivitamin Tablet 1 tab PO DAILY cetirizine [Zyrtec] 10 mg Tablet 10 mg PO DAILY ibuprofen 200 mg capsule 600 mg PO DAILY lisinopril 20 mg tablet 20 mg PO DAILY Qty: 90 4RF loperamide [Imodium A-D] 2 mg capsule 2 mg PO Q6H PRN Referrals: [facility] [Provider Group] - 3 days (Left ankle distal fibula avulsion fracture, works as visiting nurse) Stand Alone Forms: Work/School Release Interventions: ED Discharge Assessment Last Done: 03/09/24 23:47 Discharge Date/Time: 03/09/24 23:50 Print Language: [place]
[2024-03-09 23:47] VITALS: BP 140/84; PULSE 78; RESP 20; TEMP 37; O2SAT 95
--- NOTE | 2024-03-09 23:49 | MHC.EDTECH ---
pt left ankle wrapped with sue wrap, air cast stirrup placed on left ankle and crotches provided to patient with training. pt tolerated well
== END 2024-03-09 23:50 | disposition home or self-care (01) ==
PROVIDERS: Emergency Provider Emergency Medicine Emergency Medical Services; PCP Internal Medicine
DX: S82.62XA Displaced fracture of lateral malleolus of left fibula, initial encounter for closed fracture (principal); X50.1XXA Overexertion from prolonged static or awkward postures, initial encounter; Y93.01 Activity, walking, marching and hiking; Y92.238 Other place in hospital as the place of occurrence of the external cause; Y99.0 Civilian activity done for income or pay
CPT/HCPCS: 73610; 99283

== ENCOUNTER → 2024-03-13 12:32 | Outpatient (BNVA) | payer OTHER, SELFPAY | PROVIDERS: PCP Internal Medicine; Visit Provider Registered Nurse | DX: Z13.89 Encounter for screening for other disorder (principal) | CPT/HCPCS: 99202 ==

== ENCOUNTER 2024-03-15 09:39 | Outpatient (REF) | payer OTHER, SELFPAY ==
[2024-03-15 14:22] LABS: Alanine Aminotransferase 25 U/L (0-31); Anion Gap 11 (12-20); Aspartate Amino Transferase 20 U/L (5-31); Blood Urea Nitrogen 15 mg/dL (9-16); Calcium 9.8 mg/dL (8.4-10.2); Carbon Dioxide 26 mmol/L (22-29); Chloride 104 mmol/L (96-108); Cholesterol 146 mg/dL (<200); Estimated Glomerular Filt Rate > 60; Glucose Fasting 113 mg/dL (60-99); HDL Cholesterol 44 mg/dL (>40); LDL Cholesterol Calculated 88 mg/dL (<100); Sodium 137 mmol/L (135-145); Triglycerides 72 mg/dL (<150)
[2024-03-15 14:29] LABS: Estimated Average Glucose 120 mg/dL; Hemoglobin A1C 152.8355 umol/L; Hemoglobin A1c % 5.8 % (<6.0)
[2024-03-15 14:37] LABS: Vitamin D 25-OH Total 42.7 ng/mL (>30)
== END 2024-03-15 09:40 | disposition home or self-care (01) ==
LOC: HO.HMGCLDS 09:39
PROVIDERS: PCP Internal Medicine; Visit Provider Internal Medicine
DX: I10 Essential (primary) hypertension (principal); R73.01 Impaired fasting glucose; Z86.39 Personal history of other endocrine, nutritional and metabolic disease; E66.01 Morbid (severe) obesity due to excess calories; Z68.44 Body mass index [BMI] 60.0-69.9, adult; Z13.220 Encounter for screening for lipoid disorders
CPT/HCPCS: 36415; 80048; 80061; 82306; 83036; 84450; 84460

== ENCOUNTER → 2024-03-15 13:37 | Outpatient (BNVA) | payer OTHER, SELFPAY | PROVIDERS: PCP Internal Medicine; Visit Provider Registered Nurse | DX: Z13.89 Encounter for screening for other disorder (principal) | CPT/HCPCS: 99213 ==

== ENCOUNTER → 2024-03-29 13:12 | Outpatient (BNVA) | payer OTHER, SELFPAY | PROVIDERS: PCP Internal Medicine; Visit Provider Registered Nurse | DX: Z13.89 Encounter for screening for other disorder (principal) | CPT/HCPCS: 99213 ==

== ENCOUNTER → 2024-04-10 15:21 | Outpatient (BNVA) | payer OTHER, SELFPAY | PROVIDERS: PCP Internal Medicine; Visit Provider Physician Assistant | DX: Z13.89 Encounter for screening for other disorder (principal) | CPT/HCPCS: 99213 ==

== ENCOUNTER 2024-12-23 08:18 | Outpatient (REF) | payer OTHER, SELFPAY ==
--- NOTE | ~2024-12-23 | MM_ITS ---
EXAMINATION: MM SCREENING DIGITAL BREAST TOMOSYNTHESIS, BILATERAL CLINICAL INFORMATION: Screening. Asymptomatic. COMPARISON: Mammography: Comparison is made with available priors TECHNIQUE: Digital breast mammography with tomosynthesis is performed in both the craniocaudal and mediolateral oblique views along with computer-aided detection (CAD). FINDINGS: There are scattered areas of fibroglandular density (ACR BI-RADS breast composition Category b). There are no significant masses, abnormal calcifications, or other abnormalities. MM/MM tomosynthesis screening BI IMPRESSION: No mammographic evidence of malignancy. ASSESSMENT: BI-RADS BI-RADS 1 - Negative RECOMMENDATION: Routine annual mammography screening. 1 year F/U This examination should not preclude the clinical evaluation of a suspicious palpable abnormality. This patient's information was entered into a reminder system with a target due date for their next mammogram. Electronically signed by: Destiney Yost DO 12/29/2024 08:10 PM EDT
[2024-12-23 10:55] LABS: Estimated Average Glucose 123 mg/dL; Hemoglobin A1C 150.8701 umol/L; Hemoglobin A1c % 5.9 % (<6.0); Total Hemoglobin (HGBA1C) 3650.2646 umol/L
[2024-12-23 11:22] LABS: Alanine Aminotransferase 37 U/L (0-31); Anion Gap 10 (12-20); Aspartate Amino Transferase 29 U/L (5-31); Blood Urea Nitrogen 16 mg/dL (9-16); Calcium 9.1 mg/dL (8.4-10.2); Carbon Dioxide 26 mmol/L (22-29); Chloride 109 mmol/L (96-108); Cholesterol 155 mg/dL (<200); Estimated Glomerular Filt Rate > 60; Glucose Fasting 101 mg/dL (60-99); HDL Cholesterol 43 mg/dL (>40); LDL Cholesterol Calculated 96 mg/dL (<100); Potassium 4.2 mmol/L (3.3-5.1); Sodium 141 mmol/L (135-145); Triglycerides 80 mg/dL (<150); Vitamin D 25-OH Total 32.8 ng/mL (>30)
== END 2024-12-23 08:19 | disposition home or self-care (01) ==
LOC: HO.MAMMO 08:18
PROVIDERS: PCP Internal Medicine; Visit Provider Internal Medicine
DX: Z12.31 Encounter for screening mammogram for malignant neoplasm of breast (principal); Z86.39 Personal history of other endocrine, nutritional and metabolic disease; I10 Essential (primary) hypertension; R73.01 Impaired fasting glucose; E66.01 Morbid (severe) obesity due to excess calories; Z68.44 Body mass index [BMI] 60.0-69.9, adult
CPT/HCPCS: 36415; 77063; 77067; 80048; 80061; 82306; 83036; 84450; 84460

== ENCOUNTER → 2024-12-23 10:00 | Outpatient (BNV) | payer OTHER, SELFPAY | PROVIDERS: PCP Internal Medicine; Visit Provider Internal Medicine | DX: Z12.31 Encounter for screening mammogram for malignant neoplasm of breast (principal) | CPT/HCPCS: 77063; 77067 ==

== ENCOUNTER 2024-12-24 09:28 | Outpatient (AMB) | payer OTHER, SELFPAY ==
[2024-12-24 09:40] VITALS: BP 124/82; PULSE 62; RESP 16; TEMP 36.8; O2SAT 97; BMI 60.6
--- NOTE | 2024-12-24 09:40 | A.OFFPC_ITS ---
Vital Signs 12/24/24 09:40 Height 5 ft 3 in Weight 342 lb BMI 60.6 BP 124/82 Blood Pressure Location Lt brachial Position Sitting Respiration 16 Pulse 62 Pulse Source Pulse Oximeter Temp 98.2 F Temp Source Oral Pulse Oximetry (%) 97 Oxygen Delivery Method Room Air Intake Visit Reasons: Annual PE - see comments Intake Note: Pt is here today for her PE: Last mammogram 12/23/24, colonoscopy 04/13/21, papsmear 06/02/20 Allergies powder in gloves Allergy (Unknown, Verified 12/24/24 09:57) rash Medication List - Last Reconciled 12/24/24 by Michelle Salinas MD cetirizine (Zyrtec) 10 mg PO DAILY ibuprofen 600 mg PO DAILY lisinopril 20 mg PO DAILY loperamide (Imodium A-D) 2 mg PO Q6H PRN multivitamin 1 tab PO DAILY Tobacco use date assessed: 12/24/24 Dental Screening Dental Screen Date: 12/24/24 Did you have a dental visit in the last 12 months?: No Did you have a dental problem in the last 6 months where you did not have access to dental care?: No Was dental information given to patient?: No HPI Annual PE - see comments HPI Details 54 year-old lady with hypertension, hist ory of vitamin-D deficiency, impaired fasting glucose and morbid obesity, here today for physical exam. She is up-to-date with her screening mammogram, done 12/23/2024 with benign findings. Has had a colonoscopy 04/13/2021 which showed presence of left-sided diverticulosis, but repeat colonoscopy scheduled for 2025 due to history of colonic polyps in father. She is due for her cervical cancer screening, last Pap smear was done 06/02/2020 with benign findings. Patient already has been referred to OBGYN and is awaiting appointment for her routine Pap and pelvic exam. She has morbid obesity, not interested in doing any bariatric surgery, has been compliant with diet, stays active but no regular exercise. Patient states that she will check with her insurance whether any of the GLP 1 agonist is covered to help with weight loss.. She had recent fasting labs done which showed normal fasting glucose, lipids, electrolytes and renal function as well as vitamin-D level She goes to [facility] for her routine eye exam, with no change in her prescription . [facility] Medical History (Updated 12/24/24 @ 10:24 by Michelle Salinas MD) Cervical cancer screening History of vitamin D deficiency Essential hypertension Impaired fasting glucose History of COVID-19 Morbid obesity with BMI of 60.0-69.9, adult COVID-19 vaccine series completed Low back pain Knee pain, right Surgical History Hx of colonoscopy No history of previous surgery Family History Sister Mental health disorder Mother Mental health disorder Social History Housing: House Alcohol intake: never Patient Tobacco Use Status: Never used Tobacco e-Cigarette/Vaping Use: Never Used Current occupational status: employed Current occupation: Visiting nurse Cognitive needs: No Hearing needs: No Vision needs: Yes Questionnaire PHQ-9 Over the last 2 weeks, how often have you been bothered by any of the following problems? 1. Little interest or pleasure in doing things: not at all 2. Feeling down, depressed, or hopeless: not at all 3. Trouble falling or staying asleep, or sleeping too much: not at all 4. Feeling tired or having little energy: not at all 5. Poor appetite or overeating: not at all 6. Feeling bad about yourself - or that you are a failure or have let yourself or your family down: not at all 7. Trouble concentrating on things, such as reading the newspaper or watching television: not at all 8. Moving or speaking so slowly that other people could have noticed. Or the opposite - being so fidgety or restless that you have been moving around a lot more than usual: not at all 9. Thoughts that you would be better off or of hurting yourself in some way: not at all Total score: 0 Depression Screening Interpretation: Negative Depression Screening Done: Yes 70322 - PHQ-9 Billing: Yes Source: Developed by Drs. Pillo Radford, Elise Cárdenas, Pavan Alejandre and colleagues, with an educational charu from [employer]. Thrive Questionnaire Date Thrive assessed: 12/24/24 I am a: Patient What is your living situation today?: I have a steady place to live Within the past 12 months, did the food you bought not last and you didn't have the money to get more?: Never true Within the past 12 months, did you worry whether your food would run out before you got money to buy more?: Never true Do you have trouble paying for medicines?: I choose not to answer this question Do you have trouble getting transportation to medical appointments?: No Do you have trouble paying your heating and electricity bill?: No Do you have trouble taking care of your child, family member or friend?: No Do you have trouble with day-to-day activities such as bathing, preparing meals, shopping, managing finances, etc.?: No Are you currently unemployed and looking for a job?: No Are you interested in more education?: No THRIVE Score: 0 AUDIT C Alcohol Use Questionnaire (AUDIT-C) 1. How often do you have a drink containing alcohol?: Monthly or less 2. How many drinks containing alcohol do you have on a typical day when you are drinking?: 1 or 2 Total Score: 1 ELENI-7 AMB Questionnaire ELENI-7 Date ELENI - 7 assessed: 12/24/24 Feeling nervous, anxious, or on edge: 0 = Not at all Not being able to stop or control worryin = Not at all Worrying too much about different things: 0 = Not at all Trouble relaxin = Not at all Being so restless that it is hard to sit still: 0 = Not at all Becoming easily annoyed or irritable: 0 = Not at all Feeling afraid as if something awful might happen: 0 = Not at all Total ELENI-7 score (0-4 normal; 5-9 mild; 10-14 moderate; 15-21 severe): 0 Source: Developed by Drs. Pillo Radford, Elise Cárdenas, Pavan Alejandre and colleagues, with an educational charu from [employer]. ELENI-7 Assessment Billing ELENI-7 Assessment Tool: ELENI-7 Assessment 85130 Review of Systems Const Denies body aches, Denies fatigue, Denies fever(s), Denies headache(s), Denies weakness and Reports weight gain Eyes Details: sees [facility] Denies change in vision ENT Denies dizziness, Denies headache(s), Denies nasal congestion, Denies nasal discharge and Denies sore throat Card Denies chest pain, Reports rapid heart rate (With moderate exertion, resolves spontaneously after resting), Denies lightheadedness and Denies palpitations Resp Denies chest congestion, Denies cough and Denies wheezing GI Denies abdominal pain, Denies change in bowel habits and Denies heartburn Denies hematuria, Denies urinary frequency, Denies dysuria and Denies urinary urgency Musc Details: Recurrent knee pain, followed by Orthopedics Skin/Breast Denies breast pain, Denies breast mass, Denies lesions and Denies rash Neuro Denies dizziness, Denies headache(s) and Denies weakness Psych Reports no additional complaints Endo Denies fatigue, Denies polydipsia, Denies polyuria and Denies palpitations Esau/Lymph Denies easy bruising Aller/Immun Denies seasonal rhinorrhea and Denies wheezing Physical exam (Primary Care) Vital Signs: Last Vital Signs Temp 98.2 F 12/24/24 09:40 Pulse 62 12/24/24 09:40 Resp 16 12/24/24 09:40 BP 124/82 12/24/24 09:40 Pulse Ox 97 12/24/24 09:40 Oxygen Delivery Method Room Air 12/24/24 09:40 BMI result Body Mass Index 60.6 BMI Assessment/Plan discussion: High (Declines referral to weight loss clinic) BMI High, discussed plan: lifestyle, weight reduction, dietary and physical activity Tobacco/Smoking Status: Tobacco use Status Tobacco use date assessed 12/24/24 12/24/24 09:48 Patient Tobacco Use Status Never used Tobacco 12/24/24 09:41 e-Cigarette/Vaping Use Never Used 12/24/24 09:41 PHQ-9: PHQ-9 Score PHQ-9: Total score 0 12/24/24 09:59 Depression Screening Interpretation: Negative Thrive Assessment: Date of Thrive Assessment Date Thrive assessed 12/24/24 12/24/24 09:41 Const General: comfortable, no acute distress, alert and Physically active Nutritional Appearance: obese morbidly obese Orientation/consciousness: patient oriented x3 HENMT Head: Yes normocephalic Ears: TM's normal bilaterally and EAC's normal General nose exam: Normal external nose present Face and sinus: Yes face symmetric Mouth: moist mucous membranes Eyes General: appearance normal, both eyes and all related structures Neck Neck: Yes full ROM, Yes no lymphadenopathy and Yes supple Resp Effort & Inspection: normal respiratory effort and able to speak in complete sentences Auscultation: clear to auscultation bilaterally Cardio Rate: regular rate Rhythm: regular rhythm Heart sounds: S1 normal heart sound present and S2 normal heart sound present GI Inspection: Yes obesity Palpation (GI): Soft to palpation, nontender, no guarding and no masses Auscultation: normal bowel sounds General: Yes no CVA tenderness and Yes deferred Back/Spine/Pelvis Back: no CVA tenderness and No back tenderness Skin General skin exam: no rashes or lesions noted Neuro General: patient oriented x3, gait normal, moves all extremities, Normal light touch and pain sensation, no focal motor deficits and CN's II-XI intact bilaterally Extrem General: Yes full ROM, Yes no joint enlargement, Yes no clubbing, cyanosis or edema, Yes no calf tenderness and Yes normal gait Psych Appearance: grossly normal and well kempt Mental Status: mental status grossly normal Speech and movement: Normal speech and movement present Affect: normal affect Thought process: Normal thought process present Results Reviewed Results Reviewed: Laboratory Tests 12/23/24 08:24 Estimat Average Glucose 123 Hemoglobin A1c % 5.9 Name: Chandler Ortiz Age/Sex: 54/F : 1970 Unit#: [id number] Attend Dr: Michelle Salinas MD Re12/23/24 Status: DEP REF Location: [facility] Disch: SPEC : [id number] ABBY: 12/23/24 STATUS: COMP REQ : [id number] RECD: 12/23/24-[address]: Michelle Salinas MD COMP: 12/23/24 ENTERED: 12/23/[address]: ORDERED: Met Prof Fast, AST, ALT, Lipid Panel, Vitamin D 25-OH Test Result Flag Reference Sodium 141 135-145 mmol/L Potassium 4.2 3.3-5.1 mmol/L CL 109 H 96-108 mmol/L CO2 26 22-29 mmol/L Gap 10 L 12-20 BUN 16 9-16 mg/dL Creat 0.85 0.5-1.4 mg/dL eGFR > 60 Chronic Kidney Disease: Estimated GFR < 60 mL/min/1.73m2 Severe Kidney Disease: Estimated GFR < 15 mL/min/1.73m2 FBS 101 H 60-99 mg/dL A fasting glucose from 100-125 mg/dl is considered impaired (pre-diabetes). CA 9.1 # 8.4-10.2 mg/dL AST (GOT) 29 5-31 U/L ALT (GPT) 37 H 0-31 U/L Triglyceride 80 <150 mg/dL Desirable Triglyceride: less than 150 mg/dL Borderline High Triglyceride 150-199 mg/dL High Triglyceride: 200-499 mg/dL Very High Triglyceride: greater than or equal to 5OO mg/dL Cholesterol 155 <200 mg/dL Desirable Cholesterol: less than 200 mg/dL Borderline High Cholesterol: 200-239 mg/dL High Cholesterol: greater than 239 mg/dL LDL Calculated 96 <100 mg/dL Desirable LDL: less than 100 mg/dL Near Optimal/Above Optimal LDL: 110-129 mg/dL Borderline High LDL: 130-159 mg/dL High LDL: 160-189 mg/dL Very High LDL: greater than or equal to 190 mg/dL HDL 43 >40 mg/dL Desirable HDL: greater than 40 mg/dL Note: This HDL assay may give artificially low results in patients with liver disease. Vitamin D 25-OH 32.8 >30 ng/mL Health Based Reference Values* < 20 ng/mL Deficient 20-30 ng/mL Insufficient > 30 ng/mL Sufficient Coding Level of Care Code Est Pt Prev Care 40-64y(93381) Diagnoses Annual visit for general adult medical examination with abnormal findings Z00.01 Essential hypertension I10 Impaired fasting glucose R73.01 Morbid obesity with BMI of 60.0-69.9, adult E66.01; Z68.44 Family history of colonic polyps Z83.71 Advanced directives, counseling/discussion Z71.89 Additional Codes ELENI-7 Assessment Billing - ELENI-7 Assessment Tool: ELENI-7 Assessment 55865 ([id number]) PHQ-9 - 87699 - PHQ-9 Billing: Yes ([id number]) Assessment & Plan Assessment & Plan (1) Annual visit for general adult medical examination with abnormal findings: Code(s): Z00.01 - Encounter for general adult medical examination with abnormal findings Plan: Results of recent fasting labs reviewed with patient.. Recommended dental visit every 6 months and regular eye exams, at least every 2 years, goes [facility].. Take adequate calcium in diet and vitamin-D 3 at 2000 IU per cap once a day, in addition to weight-bearing exercises to help maintain good muscle tone and weight control. Instructed to do self-breast exam, and continue with yearly mammogram, currently up-to-date. Up-to-date with her screening colonoscopy due again in 2025. Referred to OBGYN for her routine Pap and pelvic exam, waiting for appointment. Reminded to get her yearly flu vaccine, up-to-date with Tdap, recommended to get shingles vaccine (2) Essential hypertension: Code(s): I10 - Essential (primary) hypertension Category: Medical Plan: Good control blood pressure on lisinopril will continue at 20 mg daily, reinforced importance of following low-salt diet, getting regular exercise at least 30 minutes 3 times a week. (3) Impaired fasting glucose: Code(s): R73.01 - Impaired fasting glucose Category: Medical Plan: Latest fasting glucose are within normal limits, with a hemoglobin A1c at 5.9%. Y. Impaired glucose metabolism increases the risk for developing diabetes mellitus type 2, as well as heart attack and stroke later on. Lifestyle changes that promotes weight loss, healthy eating habits, and regular exercise are important, and can prevent the progression to diabetes (4) Morbid obesity with BMI of 60.0-69.9, adult: Code(s): E66.01 - Morbid (severe) obesity due to excess calories; Z68.44 - Body mass index [BMI] 60.0-69.9, adult Category: Medical Plan: Patient not interested in getting any bariatric surgery, will check with insurance whether GLP 1 agonist is covered. In the meantime advised to adhere to healthy eating habits and getting regular exercise at least 30 minutes 3 times a week (5) Family history of colonic polyps: Code(s): Z83.71 - Family history of colonic polyps Category: Medical Plan: Repeat colonoscopy due in 2025 (6) Advanced directives, counseling/discussion: Code(s): Z71.89 - Other specified counseling Plan: Initiated the conversation about Advanced Directives. Advanced Directives help patients prepare for current and future decisions about their medical treatment and place of care. Discussed with patient that it is a process where a patients current condition and prognosis are reviewed, their wishes for information regarding their illness are elicited, and likely medical dilemmas are presented and options discussed. Healthcare proxy form completed today. The form can be amended as needed, reviewed yearly and make changes as needed
== END 2024-12-24 10:29 | disposition home or self-care (01) ==
PROVIDERS: PCP Internal Medicine; Visit Provider Internal Medicine
DX: Z00.01 Encounter for general adult medical examination with abnormal findings (principal); E66.01 Morbid (severe) obesity due to excess calories; Z68.44 Body mass index [BMI] 60.0-69.9, adult; I10 Essential (primary) hypertension; R73.01 Impaired fasting glucose; Z83.71 Family history of colonic polyps; Z71.89 Other specified counseling

== ENCOUNTER → 2024-12-24 09:28 | Outpatient (BNVA) | payer OTHER, SELFPAY | PROVIDERS: PCP Internal Medicine; Visit Provider Internal Medicine | DX: Z00.01 Encounter for general adult medical examination with abnormal findings (principal); I10 Essential (primary) hypertension; R73.01 Impaired fasting glucose; E66.01 Morbid (severe) obesity due to excess calories; Z68.44 Body mass index [BMI] 60.0-69.9, adult; Z79.899 Other long term (current) drug therapy; Z83.719 Family history of colon polyps, unspecified; Z71.89 Other specified counseling | CPT/HCPCS: 96127 ==

== ENCOUNTER 2025-06-30 09:15 | Outpatient (REF) | payer OTHER, SELFPAY ==
[2025-06-30 10:26] LABS: Hemoglobin A1C 149.6325 umol/L; Total Hemoglobin (HGBA1C) 3678.9004 umol/L
[2025-06-30 11:17] LABS: Anion Gap 12 (12-20); Blood Urea Nitrogen 18 mg/dL (9-16); Calcium 9.6 mg/dL (8.4-10.2); Carbon Dioxide 27 mmol/L (22-29); Chloride 105 mmol/L (96-108); Estimated Glomerular Filt Rate > 60; Potassium 4.1 mmol/L (3.3-5.1); Sodium 140 mmol/L (135-145)
== END 2025-06-30 09:16 | disposition home or self-care (01) ==
LOC: HO.HMGCLDS 09:15
PROVIDERS: PCP Internal Medicine; Visit Provider Internal Medicine
DX: I10 Essential (primary) hypertension (principal); R73.01 Impaired fasting glucose; Z86.39 Personal history of other endocrine, nutritional and metabolic disease
CPT/HCPCS: 36415; 80048; 82306; 83036

== ENCOUNTER 2025-07-01 09:03 | Outpatient (AMB) | payer OTHER, SELFPAY ==
[2025-07-01 09:42] VITALS: BP 134/82; PULSE 75; RESP 19; TEMP 36.8; O2SAT 97; BMI 59.2
--- NOTE | 2025-07-01 09:42 | MHC.PC.OV ---
Vital Signs 07/01/25 09:42 Height 5 ft 3 in Weight 334 lb BMI 59.2 BP 134/82 Blood Pressure Location Lt brachial Position Sitting Respiration 19 Pulse 75 Pulse Source Pulse Oximeter Temp 98.3 F Temp Source Oral Pulse Oximetry (%) 97 Oxygen Delivery Method Room Air Intake Visit Reasons: 6m f/u Intake Note: Pt is here today for 6 months follow up visit. Allergies powder in gloves Allergy (Unknown, Verified 07/01/25 10:03) rash Medication List - Last Reconciled 07/01/25 by Michelle Salinas MD cetirizine (Zyrtec) 10 mg PO DAILY ibuprofen 600 mg PO DAILY lisinopril 20 mg PO DAILY loperamide (Imodium A-D) 2 mg PO Q6H PRN multivitamin 1 tab PO DAILY Tobacco use date assessed: 07/01/25 Dental Screening Dental Screen Date: 12/24/24 HPI 6m f/u HPI Details 55 year-old lady with hypertension, history of vitamin-D deficiency, impaired fasting glucose and morbid obesity, here today for her follow-up [facility] Medical History (Updated 12/24/24 @ 10:24 by Michelle Salinas MD) Cervical cancer screening History of vitamin D deficiency Essential hypertension Impaired fasting glucose History of COVID-19 Morbid obesity with BMI of 60.0-69.9, adult COVID-19 vaccine series completed Low back pain Knee pain, right Surgical History Hx of colonoscopy No history of previous surgery Family History Sister Mental health disorder Mother Mental health disorder Social History Housing: House Alcohol intake: never Patient Tobacco Use Status: Never used Tobacco e-Cigarette/Vaping Use: Never Used Current occupational status: employed Current occupation: Visiting nurse Cognitive needs: No Hearing needs: No Vision needs: Yes Questionnaire PHQ-9 Over the last 2 weeks, how often have you been bothered by any of the following problems? 1. Little interest or pleasure in doing things: not at all 2. Feeling down, depressed, or hopeless: not at all 3. Trouble falling or staying asleep, or sleeping too much: not at all 4. Feeling tired or having little energy: not at all 5. Poor appetite or overeating: not at all 6. Feeling bad about yourself - or that you are a failure or have let yourself or your family down: not at all 7. Trouble concentrating on things, such as reading the newspaper or watching television: not at all 8. Moving or speaking so slowly that other people could have noticed. Or the opposite - being so fidgety or restless that you have been moving around a lot more than usual: not at all 9. Thoughts that you would be better off or of hurting yourself in some way: not at all Total score: 0 Depression Screening Interpretation: Negative Depression Screening Done: Yes Source: Developed by Drs. Pillo Radford, Elise Cárdenas, Pavan Alejandre and colleagues, with an educational charu from [employer]. Thrive Questionnaire Date Thrive assessed: 12/24/24 I am a: Patient What is your living situation today?: I have a steady place to live Within the past 12 months, did the food you bought not last and you didn't have the money to get more?: Never true Within the past 12 months, did you worry whether your food would run out before you got money to buy more?: Never true Do you have trouble paying for medicines?: I choose not to answer this question Do you have trouble getting transportation to medical appointments?: No Do you have trouble paying your heating and electricity bill?: No Do you have trouble taking care of your child, family member or friend?: No Do you have trouble with day-to-day activities such as bathing, preparing meals, shopping, managing finances, etc.?: No Are you currently unemployed and looking for a job?: No Are you interested in more education?: No THRIVE Score: 0 ELENI-7 AMB Questionnaire ELENI-7 Date ELENI - 7 assessed: 12/24/24 Feeling nervous, anxious, or on edge: 0 = Not at all Not being able to stop or control worryin = Not at all Worrying too much about different things: 0 = Not at all Trouble relaxin = Not at all Being so restless that it is hard to sit still: 0 = Not at all Becoming easily annoyed or irritable: 0 = Not at all Feeling afraid as if something awful might happen: 0 = Not at all Total ELENI-7 score (0-4 normal; 5-9 mild; 10-14 moderate; 15-21 severe): 0 Source: Developed by Drs. Pillo Radford, Elise Cárdenas, Pavan Alejandre and colleagues, with an educational charu from [employer]. Physical exam (Primary Care) Vital Signs: Last Vital Signs Temp 98.3 F 07/01/25 09:42 Pulse 75 07/01/25 09:42 Resp 19 07/01/25 09:42 BP 134/82 07/01/25 09:42 Pulse Ox 97 07/01/25 09:42 Oxygen Delivery Method Room Air 07/01/25 09:42 BMI result Body Mass Index 59.2 Tobacco/Smoking Status: Tobacco use Status Tobacco use date assessed 07/01/25 07/01/25 09:46 Patient Tobacco Use Status Never used Tobacco 07/01/25 09:46 e-Cigarette/Vaping Use Never Used 07/01/25 09:46 PHQ-9: PHQ-9 Score PHQ-9: Total score 0 07/01/25 10:04 Depression Screening Interpretation: Negative Thrive Assessment: Date of Thrive Assessment Date Thrive assessed 12/24/24 07/01/25 09:46 Office Procedures Flu Questionnaire Does the patient have a severe egg allergy?: No Does the patient have severe life threatening allergies?: No Does the patient have a fever or illness today?: No Has the patient ever had Guillain-[place] Syndrome?: No Has the patient ever had any past reaction to a flu shot?: No Immunizations Fluarix [id number] (PF) 45 mcg (15 mcg x 3)/0.5 mL IM syringe Performing Provider: Michelle Salinas MD Performing Location: [facility] Administered by: Michael Johnson CMA on 07/01/25 10:27 Dose Route Admin Location Dispensed Lot Number Expiration Date [facility] Multimedia Manager 0.5 mL IM Left Deltoid 0.5 mL [id number] 03/31/26 [id number] Patient Conversation Media VIS Given Date VIS Provided VIS Publication Date 07/01/25 Single Vaccine 24 Eligibility Eligibility Date Funding Source Not VFC Eligible 07/01/25 Private Results Reviewed Results Reviewed: Name: Chandler Ortiz Age/Sex: 55/F : 1970 Unit#: [id number] Attend Dr: Michelle Salinas MD Re06/30/25 Status: DEP REF Location: [facility] Disch: SPEC : [id number] ABBY: 06/30/25 STATUS: COMP REQ : [id number] RECD: 06/30/[address]: Michelle Salinas MD COMP: 06/30/25 ENTERED: 06/30/[address]: ORDERED: Met Prof Fast, Vitamin D 25-OH Test Result Flag Reference Sodium 140 135-145 mmol/L Potassium 4.1 3.3-5.1 mmol/L CL 105 96-108 mmol/L CO2 27 22-29 mmol/L Gap 12 12-20 BUN 18 H 9-16 mg/dL Creat 0.81 0.5-1.4 mg/dL eGFR > 60 Chronic Kidney Disease: Estimated GFR < 60 mL/min/1.73m2 Severe Kidney Disease: Estimated GFR < 15 mL/min/1.73m2 FBS 94 60-99 mg/dL CA 9.6 8.4-10.2 mg/dL Vitamin D 25-OH 18.5 L >30 ng/mL Health Based Reference Values* < 20 ng/mL Deficient 20-30 ng/mL Insufficient > 30 ng/mL Sufficient Coding Diagnoses Screening for malignant neoplasm of cervix Z12.4 Perimenopausal disorder N95.9 Assessment & Plan Assessment & Plan (1) Screening for malignant neoplasm of cervix: Code(s): Z12.4 - Encounter for screening for malignant neoplasm of cervix (2) Perimenopausal disorder: Code(s): N95.9 - Unspecified menopausal and perimenopausal disorder Orders: Orders Influenza 9625-9063 Immunization Today Z23 - Encounter for immunization Referrals [facility] Referral N95.9 - Unspecified menopausal and perimenopausal disorder, Z12.4 - Encounter for screening for malignant neoplasm of cervix Medications: New cholecalciferol (vitamin D3) 1,250 mcg PO QWEEK 13 caps 0RF 3 months
== END 2025-07-01 10:27 | disposition home or self-care (01) ==
LOC: HO.HMCC 09:04
PROVIDERS: PCP Internal Medicine; Visit Provider Internal Medicine
DX: Z23 Encounter for immunization (principal)

== ENCOUNTER → 2025-07-01 09:03 | Outpatient (BNVA) | payer OTHER, SELFPAY | PROVIDERS: PCP Internal Medicine; Visit Provider Internal Medicine | DX: I10 Essential (primary) hypertension (principal); N95.9 Unspecified menopausal and perimenopausal disorder; E66.01 Morbid (severe) obesity due to excess calories; Z68.44 Body mass index [BMI] 60.0-69.9, adult; Z86.39 Personal history of other endocrine, nutritional and metabolic disease; Z23 Encounter for immunization | CPT/HCPCS: 90471; 90656; 96127 ==